=== PATIENT | female | born 1965 | race Caucasian/White ===

== ENCOUNTER 2021-11-12 18:44 | Inpatient (IN) | payer MEDICARE, MEDICAID ==
[~2021-11-12] VITALS: Ht 170.2 cm; Wt 78.5 kg
[2021-11-12] MEDS ORDERED: RISP0.5T39 PO (19:55)
[2021-11-12] MEDS ORDERED: OS500 PO (19:55)
[2021-11-12] MEDS ORDERED: HALOPERIDOL 5 MG TABLET PO PRN (21:45)
[2021-11-12] MEDS ORDERED: LORazepam 2 MG TABLET PO PRN (21:45)
[2021-11-12] MEDS ORDERED: PNEUMOCOCCAL VACCINE POLYVALENT 0.5 ML VIAL [PPSV23] IM. ONE (23:45)
[2021-11-13 00:37] VITALS: BP 114/70
[2021-11-13] MEDS ORDERED: MAG HYDROX/AL HYDROX/SIMETH ES 30 ML SUSPENSION UDCUP PO PRN (06:30)
[2021-11-13] MEDS ORDERED: MAGNESIUM HYDROXIDE SUSPENSION 30 ML UDCUP PO PRN (06:30)
[2021-11-13] MEDS ORDERED: ONDANSETRON HCL 4 MG TABLET PO PRN (06:30)
[2021-11-13] MEDS ORDERED: GuaiFENesin/D-METHORPHAN [SUGAR-FREE] 200-20MG/10 ML SYRUP UDCUP PO PRN (06:30)
[2021-11-13] MEDS ORDERED: LOPERAMIDE HCL 2 MG CAPSULE PO PRN (06:30)
[2021-11-13] MEDS ORDERED: NICOTINE 14 MG/24 HOUR PATCH TD PRN (06:30)
[2021-11-13] MEDS ORDERED: PETROLATUM,WHITE 28 GM JELLY TP PRN (06:30)
[2021-11-13] MEDS ORDERED: CloNIDine HCL 0.1 MG TABLET PO PRN (06:30)
[2021-11-13] MEDS ORDERED: ALBUTEROL SULFATE HFA 90 MCG/PUFF 8 GM INHALER IH PRN (06:30)
[2021-11-13 07:26] LABS: BASOPHILS % (AUTO) 0.9 % (0.0-2.0); EOSINOPHILS % (AUTO) 3.1 % (1.0-6.0); HEMATOCRIT 35.3 % (36-46); HEMOGLOBIN 11.9 g/dL (12.0-16.0); LYMPHOCYTES # (AUTO) 1.7 K/uL (1.0-4.8); LYMPHOCYTES % (AUTO) 25.4 % (22.0-44.0); MEAN CORPUSCULAR HEMOGLOBIN 29.3 pg (26.0-34.0); MEAN CORPUSCULAR HGB CONC 33.6 G/dL (31.0-37.0); MEAN CORPUSCULAR VOLUME 87 fL (80-100); MONOCYTES # (AUTO) 0.8 K/uL (0.1-1.0); MONOCYTES % (AUTO) 11.9 % (2.0-9.0); NEUTROPHILS # (AUTO) 3.8 K/uL (1.8-7.7); NEUTROPHILS % (AUTO) 58.7 % (40.0-70.0); PLATELET COUNT (AUTO) 285 K/uL (150-450); RED BLOOD CELL COUNT(AUTO) 4.05 MIL/uL (4.00-5.20); RED CELL DISTRIBUTION WIDTH 13.4 % (11.5-14.5)
[2021-11-13 07:33] LABS: HEMOGLOBIN A1C 5.7 % (3.8-5.6)
[2021-11-13 08:08] VITALS: BP 96/62
[2021-11-13 08:09] LABS: ALANINE AMINOTRANSFERASE 24 U/L (12-78); ALBUMIN 3.2 g/dL (3.4-5.0); ALKALINE PHOSPHATASE 81 U/L (46-116); ANION GAP 5 mmol/L (8-16); ASPARTATE AMINOTRANSFERASE 25 U/L (15-37); BILIRUBIN,TOTAL 0.6 mg/dL (0.1-1.0); CARBON DIOXIDE 29 mmol/L (22-29); CHLORIDE 102 mmol/L (98-107); CHOL/HDL RATIO 3.6 (3.9-5.7); CHOLESTEROL 192 mg/dL (131-200); CREATININE 0.74 mg/dL (0.60-1.30); FREE T4 (FREE THYROXINE) 1.28 ng/dL (0.76-1.46); GLOMERULAR FILTR. RATE CALC > 60 mL/min (>60); GLUCOSE,RANDOM 93 mg/dL (70-110); HDL CHOLESTEROL 53 mg/dL (40-60); LDL CHOL (CALC.) 125 mg/dL (0-130); POTASSIUM 3.7 mmol/L (3.5-5.1); SODIUM SERUM 136 mmol/L (136-145); THYROID STIMULATING HORMONE 1.16 uIU/mL (0.36-3.74); TOTAL PROTEIN, SERUM 7.2 g/dL (6.4-8.2); TRIGLYCERIDES 69 mg/dL (15-150); UREA NITROGEN, BLOOD 17 mg/dL (7-18)
[2021-11-13 12:36] VITALS: BP 104/68
[2021-11-13] MEDS: CALCIUM CARBONATE 500 MG TABLET PO SCH (13:25)
[2021-11-13] MEDS ORDERED: PRAZOSIN HCL 2 MG CAPSULE PO PRN (14:15)
[2021-11-13] MEDS: ACETAMINOPHEN 325 MG TABLET PO PRN (15:27)
[2021-11-13 16:30] VITALS: BP 127/80
[2021-11-13] MEDS: RisperiDONE 0.5 MG TABLET PO SCH (16:35)
[2021-11-14 01:13] VITALS: BP 119/75
[2021-11-14 08:17] VITALS: BP 123/81
[2021-11-14] MEDS: RisperiDONE 0.5 MG TABLET PO SCH ×2 (08:29→17:00)
[2021-11-14] MEDS: CALCIUM CARBONATE 500 MG TABLET PO SCH (08:29)
[2021-11-14] MEDS: ACETAMINOPHEN 325 MG TABLET PO PRN (08:31)
[2021-11-15] MEDS: ZOLPIDEM TARTRATE 10 MG TABLET PO PRN ×2 (02:38→21:00)
[2021-11-15 02:49] VITALS: BP 115/87
[2021-11-15 07:34] LABS: APPEARANCE,URINE CLEAR (CLEAR); BILIRUBIN,URINE NEGATIVE (NEGATIVE); GLUCOSE, URINE (UA) >=1000 mg/dL (NEGATIVE); KETONES,URINE NEGATIVE (NEGATIVE); LEUKOCYTE ESTERASE ,URINE NEGATIVE (NEGATIVE); NITRATE,URINE NEGATIVE (NEGATIVE); OCCULT BLOOD,URINE NEGATIVE (NEGATIVE); PROTEIN,URINE NEGATIVE (NEGATIVE); SPECIFIC GRAVITIY, URINE 1.023 (1.003-1.030); UROBILINOGEN,URINE <=1.0 mg/dL (<=1.0)
[2021-11-15 07:39] LABS: AMPHET/METH SCREEN,URINE NEGATIVE (NEGATIVE); BARBITURATE SCREEN, URINE NEGATIVE (NEGATIVE); BENZODIAZEPINES SCREEN,URINE NEGATIVE (NEGATIVE); CANNABINOID SCREEN,URINE NEGATIVE (NEGATIVE); COCAINE SCREEN,URINE NEGATIVE (NEGATIVE); METHADONE SCREEN, URINE NEGATIVE (NEGATIVE); OPIATE SCREEN,URINE NEGATIVE (NEGATIVE)
[2021-11-15 07:41] LABS: PHENCYCLIDINE SCREEN,URINE NEGATIVE (NEGATIVE)
[2021-11-15 08:00] LABS: BACTERIA,URINE None Seen /HPF (None Seen); RBC,URINE None Seen /HPF (0-2); SQUAMOUS EPITHELIAL CELL,UR None Seen /LPF (None Seen); WBC,URINE None Seen /HPF (0-5)
[2021-11-15 08:05] VITALS: BP 127/78
[2021-11-15] MEDS: RisperiDONE 0.5 MG TABLET PO SCH ×2 (08:31→16:55)
[2021-11-15] MEDS: CALCIUM CARBONATE 500 MG TABLET PO SCH (08:31)
[2021-11-15 16:33] VITALS: BP 112/79
[2021-11-16 08:00] VITALS: BP 124/74
[2021-11-16] MEDS: RisperiDONE 0.5 MG TABLET PO SCH ×2 (08:05→16:35)
[2021-11-16] MEDS: CALCIUM CARBONATE 500 MG TABLET PO SCH (08:05)
[2021-11-16] MEDS: ACETAMINOPHEN 325 MG TABLET PO PRN (10:24)
[2021-11-16] MEDS: IBUPROFEN 400 MG TABLET PO PRN (11:53)
[2021-11-16 12:00] VITALS: BP 127/72
[2021-11-16 16:09] VITALS: BP 139/78
[2021-11-17 02:06] VITALS: BP 123/77
[2021-11-17 08:11] LABS: GLUCOMETER DEV NAME(LOC) POC.BV
[2021-11-17 08:49] VITALS: BP 137/83
[2021-11-17] MEDS: CALCIUM CARBONATE 500 MG TABLET PO SCH (09:15)
[2021-11-17] MEDS: RisperiDONE 0.5 MG TABLET PO SCH ×3 (09:16→17:56)
[2021-11-17] MEDS: IBUPROFEN 400 MG TABLET PO PRN (11:21)
[2021-11-17 11:22] VITALS: BP 123/81
[2021-11-17 16:06] VITALS: BP 112/72
[2021-11-17] MEDS: ZOLPIDEM TARTRATE 10 MG TABLET PO PRN (21:16)
[2021-11-18 06:20] VITALS: BP 128/80
[2021-11-18] MEDS: CALCIUM CARBONATE 500 MG TABLET PO SCH (08:10)
[2021-11-18] MEDS: ACETAMINOPHEN 325 MG TABLET PO PRN (08:11)
[2021-11-18] MEDS: RisperiDONE 0.5 MG TABLET PO SCH ×3 (08:19→16:27)
[2021-11-18 08:27] VITALS: BP 127/88
[2021-11-18 16:04] VITALS: BP 131/79
[2021-11-18] MEDS: ZOLPIDEM TARTRATE 10 MG TABLET PO PRN (21:44)
[2021-11-19 00:24] VITALS: BP 122/82
[2021-11-19] MEDS: MULTIVITAMINS WITH IRON TABLET PO SCH (07:08)
[2021-11-19] MEDS: RisperiDONE 0.5 MG TABLET PO SCH ×2 (08:13→17:11)
[2021-11-19] MEDS: CALCIUM CARBONATE 500 MG TABLET PO SCH (08:45)
[2021-11-19 09:12] VITALS: BP 126/76
[2021-11-19] MEDS: ACETAMINOPHEN 325 MG TABLET PO PRN (12:05)
[2021-11-19 16:17] VITALS: BP 144/87
[2021-11-19] MEDS: ZOLPIDEM TARTRATE 10 MG TABLET PO PRN (20:50)
[2021-11-20 05:30] VITALS: BP 135/85
[2021-11-20] MEDS: MULTIVITAMINS WITH IRON TABLET PO SCH (07:01)
[2021-11-20 08:06] VITALS: BP 127/77
[2021-11-20] MEDS: CALCIUM CARBONATE 500 MG TABLET PO SCH (08:34)
[2021-11-20] MEDS: RisperiDONE 0.5 MG TABLET PO SCH ×2 (08:34→16:27)
[2021-11-20] MEDS: ACETAMINOPHEN 325 MG TABLET PO PRN (12:48)
[2021-11-20 16:00] VITALS: BP 137/85
[2021-11-20] MEDS: ZOLPIDEM TARTRATE 10 MG TABLET PO PRN (21:00)
[2021-11-21 00:22] VITALS: BP 106/67
[2021-11-21] MEDS: MULTIVITAMINS WITH IRON TABLET PO SCH (06:50)
[2021-11-21] MEDS: RisperiDONE 0.5 MG TABLET PO SCH ×2 (08:08→16:05)
[2021-11-21] MEDS: CALCIUM CARBONATE 500 MG TABLET PO SCH (08:08)
[2021-11-21 08:32] VITALS: BP 133/70
[2021-11-21 17:50] VITALS: BP 125/74
[2021-11-21] MEDS: IBUPROFEN 400 MG TABLET PO PRN (17:56)
[2021-11-21] MEDS: ZOLPIDEM TARTRATE 10 MG TABLET PO PRN (20:23)
[2021-11-22] MEDS: MULTIVITAMINS WITH IRON TABLET PO SCH (06:52)
[2021-11-22 08:08] VITALS: BP 120/79
[2021-11-22] MEDS: RisperiDONE 0.5 MG TABLET PO SCH ×2 (08:53→16:22)
[2021-11-22] MEDS: CALCIUM CARBONATE 500 MG TABLET PO SCH (08:53)
[2021-11-22 16:53] VITALS: BP 149/90
[2021-11-23 05:23] VITALS: BP 120/96
[2021-11-23] MEDS: MULTIVITAMINS WITH IRON TABLET PO SCH (06:37)
[2021-11-23] MEDS: RisperiDONE 0.5 MG TABLET PO SCH ×2 (08:14→16:17)
[2021-11-23] MEDS: CALCIUM CARBONATE 500 MG TABLET PO SCH (08:14)
[2021-11-23] MEDS: DOCUSATE SODIUM 100 MG CAPSULE PO PRN (08:14)
[2021-11-23 16:07] VITALS: BP 125/74
[2021-11-23] MEDS: ZOLPIDEM TARTRATE 10 MG TABLET PO PRN (20:22)
[2021-11-24 04:46] VITALS: BP 131/79
[2021-11-24] MEDS: MULTIVITAMINS WITH IRON TABLET PO SCH (06:36)
[2021-11-24 08:06] VITALS: BP 104/70
[2021-11-24 08:41] LABS: GLUCOMETER DEV NAME(LOC) POC.BV
[2021-11-24] MEDS: RisperiDONE 0.5 MG TABLET PO SCH ×2 (08:45→16:35)
[2021-11-24] MEDS: CALCIUM CARBONATE 500 MG TABLET PO SCH (08:46)
[2021-11-24 16:04] VITALS: BP 134/79
[2021-11-24] MEDS: IBUPROFEN 400 MG TABLET PO PRN (16:04)
[2021-11-24] MEDS: ZOLPIDEM TARTRATE 10 MG TABLET PO PRN (20:56)
[2021-11-25 00:23] VITALS: BP 128/80
[2021-11-25] MEDS: MULTIVITAMINS WITH IRON TABLET PO SCH (06:57)
[2021-11-25 08:33] VITALS: BP 145/79
[2021-11-25] MEDS: CALCIUM CARBONATE 500 MG TABLET PO SCH (08:48)
[2021-11-25] MEDS: RisperiDONE 0.5 MG TABLET PO SCH ×2 (08:48→17:42)
[2021-11-25 16:06] VITALS: BP 131/79
[2021-11-25] MEDS: ZOLPIDEM TARTRATE 10 MG TABLET PO PRN (20:59)
[2021-11-26 06:23] VITALS: BP 124/67
[2021-11-26] MEDS: MULTIVITAMINS WITH IRON TABLET PO SCH (07:40)
[2021-11-26 08:06] VITALS: BP 130/70
[2021-11-26] MEDS: RisperiDONE 0.5 MG TABLET PO SCH ×2 (08:50→16:04)
[2021-11-26] MEDS: CALCIUM CARBONATE 500 MG TABLET PO SCH (08:51)
[2021-11-26 16:16] VITALS: BP 155/88
[2021-11-26] MEDS: ZOLPIDEM TARTRATE 10 MG TABLET PO PRN (22:13)
[2021-11-27 00:05] VITALS: BP 105/72
[2021-11-27] MEDS: ACETAMINOPHEN 325 MG TABLET PO PRN (04:41)
[2021-11-27] MEDS: MULTIVITAMINS WITH IRON TABLET PO SCH (06:53)
[2021-11-27 08:09] VITALS: BP 132/76
[2021-11-27] MEDS: CALCIUM CARBONATE 500 MG TABLET PO SCH (08:56)
[2021-11-27] MEDS: RisperiDONE 0.5 MG TABLET PO SCH ×3 (08:56→17:15)
[2021-11-27 16:01] VITALS: BP 148/86
[2021-11-27] MEDS: IBUPROFEN 400 MG TABLET PO PRN (18:09)
[2021-11-27] MEDS: ZOLPIDEM TARTRATE 10 MG TABLET PO PRN (21:03)
[2021-11-28 03:46] VITALS: BP 132/80
[2021-11-28 08:10] VITALS: BP 140/80
[2021-11-28] MEDS: RisperiDONE 0.5 MG TABLET PO SCH ×2 (08:22→16:58)
[2021-11-28] MEDS: MULTIVITAMINS WITH IRON TABLET PO SCH (08:22)
[2021-11-28] MEDS: CALCIUM CARBONATE 500 MG TABLET PO SCH (08:22)
[2021-11-28 16:09] VITALS: BP 127/75
[2021-11-28] MEDS: ZOLPIDEM TARTRATE 10 MG TABLET PO PRN (20:46)
[2021-11-29 00:39] VITALS: BP 125/76
[2021-11-29] MEDS: MULTIVITAMINS WITH IRON TABLET PO SCH (06:42)
[2021-11-29 08:21] VITALS: BP 131/82
[2021-11-29] MEDS: RisperiDONE 0.5 MG TABLET PO SCH ×2 (08:35→16:58)
[2021-11-29] MEDS: CALCIUM CARBONATE 500 MG TABLET PO SCH (08:35)
[2021-11-29] MEDS: ACETAMINOPHEN 325 MG TABLET PO PRN (10:51)
[2021-11-29 16:43] VITALS: BP 137/93
[2021-11-29] MEDS: ZOLPIDEM TARTRATE 10 MG TABLET PO PRN (22:01)
[2021-11-30 01:29] VITALS: BP 128/81
[2021-11-30] MEDS: MULTIVITAMINS WITH IRON TABLET PO SCH (06:45)
[2021-11-30] MEDS: RisperiDONE 0.5 MG TABLET PO SCH ×2 (07:55→17:26)
[2021-11-30] MEDS: CALCIUM CARBONATE 500 MG TABLET PO SCH (07:55)
[2021-11-30 08:26] VITALS: BP 112/82
[2021-11-30 11:26] LABS: GLUCOMETER DEV NAME(LOC) BV2X.2; GLUCOSE,POINT OF CARE 205 MG/DL (70-110)
[2021-11-30] MEDS: ACETAMINOPHEN 325 MG TABLET PO PRN (12:39)
[2021-11-30] MEDS: DOCUSATE SODIUM 100 MG CAPSULE PO PRN (14:09)
[2021-11-30 17:45] VITALS: BP 131/80
[2021-12-01 00:39] VITALS: BP 129/80
[2021-12-01] MEDS: MULTIVITAMINS WITH IRON TABLET PO SCH (06:50)
[2021-12-01] MEDS: CALCIUM CARBONATE 500 MG TABLET PO SCH (07:22)
[2021-12-01] MEDS: RisperiDONE 0.5 MG TABLET PO SCH ×2 (07:22→16:54)
[2021-12-01 08:05] VITALS: BP 127/84
[2021-12-01 08:50] LABS: GLUCOMETER DEV NAME(LOC) POC.BV
[2021-12-01 17:24] VITALS: BP 122/78
[2021-12-01] MEDS: ZOLPIDEM TARTRATE 10 MG TABLET PO PRN (20:51)
[2021-12-02 00:59] VITALS: BP 125/81
[2021-12-02] MEDS: MULTIVITAMINS WITH IRON TABLET PO SCH (06:32)
[2021-12-02 08:03] VITALS: BP 121/92
[2021-12-02] MEDS: CALCIUM CARBONATE 500 MG TABLET PO SCH (08:40)
[2021-12-02] MEDS: RisperiDONE 0.5 MG TABLET PO SCH ×2 (08:40→17:10)
[2021-12-02 16:03] VITALS: BP 134/79
[2021-12-02] MEDS: ACETAMINOPHEN 325 MG TABLET PO PRN (17:59)
[2021-12-02] MEDS: ZOLPIDEM TARTRATE 10 MG TABLET PO PRN (20:41)
[2021-12-03 00:11] VITALS: BP 126/77
[2021-12-03] MEDS: MULTIVITAMINS WITH IRON TABLET PO SCH (07:09)
[2021-12-03] MEDS: CALCIUM CARBONATE 500 MG TABLET PO SCH (08:02)
[2021-12-03] MEDS: RisperiDONE 0.5 MG TABLET PO SCH ×2 (08:02→17:06)
[2021-12-03 08:06] VITALS: BP 138/83
[2021-12-03 16:24] VITALS: BP 128/72
[2021-12-03] MEDS: ZOLPIDEM TARTRATE 10 MG TABLET PO PRN (20:45)
[2021-12-04 05:45] VITALS: BP 126/74
[2021-12-04] MEDS: MULTIVITAMINS WITH IRON TABLET PO SCH (06:53)
[2021-12-04 08:11] VITALS: BP 132/78
[2021-12-04] MEDS: RisperiDONE 0.5 MG TABLET PO SCH ×2 (09:15→17:10)
[2021-12-04] MEDS: CALCIUM CARBONATE 500 MG TABLET PO SCH (09:15)
[2021-12-04] MEDS: IBUPROFEN 400 MG TABLET PO PRN (11:27)
[2021-12-04 16:11] VITALS: BP 108/68
[2021-12-04] MEDS: ZOLPIDEM TARTRATE 10 MG TABLET PO PRN (21:03)
[2021-12-05 00:21] VITALS: BP 126/74
[2021-12-05] MEDS: MULTIVITAMINS WITH IRON TABLET PO SCH (06:53)
[2021-12-05] MEDS: CALCIUM CARBONATE 500 MG TABLET PO SCH (07:46)
[2021-12-05] MEDS: RisperiDONE 0.5 MG TABLET PO SCH ×2 (07:46→17:24)
[2021-12-05 09:11] VITALS: BP 116/68
[2021-12-05 16:05] VITALS: BP 141/90
[2021-12-05] MEDS: ZOLPIDEM TARTRATE 10 MG TABLET PO PRN (21:26)
[2021-12-06] MEDS: MULTIVITAMINS WITH IRON TABLET PO SCH (06:23)
[2021-12-06] MEDS: CALCIUM CARBONATE 500 MG TABLET PO SCH (08:09)
[2021-12-06] MEDS: RisperiDONE 0.5 MG TABLET PO SCH (08:09)
[2021-12-06 08:13] VITALS: BP 124/82
[2021-12-06] MEDS ORDERED: MVITFE PO (10:41)
[2021-12-06] MEDS ORDERED: OS500 PO (10:41)
[2021-12-06] MEDS ORDERED: RISP0.5T39 PO (10:41)
== END 2021-12-06 12:45 | disposition home or self-care (01) | DRG 885 ==
LOC: B3A 20:17 → B2X 11-13 17:05
PROVIDERS: ADMIT Psychiatry & Neurology Child & Adolescent Psychiatry; ATTEND Psychiatry & Neurology Child & Adolescent Psychiatry
DX: F25.1 Schizoaffective disorder, depressive type (principal); R45.851 Suicidal ideations; F23 Brief psychotic disorder; I10 Essential (primary) hypertension; M81.0 Age-related osteoporosis without current pathological fracture; F41.9 Anxiety disorder, unspecified; D64.9 Anemia, unspecified; Z20.822 Contact with and (suspected) exposure to COVID-19; Z91.19 Patient's noncompliance with other medical treatment and regimen; Z63.8 Other specified problems related to primary support group; Z59.00 Homelessness unspecified; Z28.21 Immunization not carried out because of patient refusal
CPT/HCPCS: 80053; 80061; 80307; 81001; 82962; 83036; 84439; 84443; 85025; 87081